=== PATIENT | female | born 1980 | race Caucasian/White ===

== ENCOUNTER 2020-06-27 14:20 | Emergency (ER) | payer OTHER ==
[~2020-06-27] VITALS: Ht 162.6 cm; Wt 81.6 kg
[~2020-06-27 14:20] MED LIST: PREN-385 PO
[2020-06-27 14:35] VITALS: BP 131/86
[2020-06-27] MEDS ORDERED: LIDOCAINE MPF 1% 10 MG/ML VIAL INJ ONE (15:00)
[2020-06-27] MEDS ORDERED: HYDROcodone/APAP 5/325 MG 1 TAB TAB PO ONE (15:00)
[2020-06-27] MEDS ORDERED: CEPH500C16 PO (15:40)
[2020-06-27] MEDS ORDERED: IBUP-2213 PO (15:40)
[2020-06-27] MEDS ORDERED: ACET-8386 PO (15:40)
[2020-06-27 16:02] VITALS: BP 131/86
== END 2020-06-27 16:04 | disposition home or self-care (01) ==
LOC: MED 14:20
DX: S61.300A Unspecified open wound of right index finger with damage to nail, initial encounter (principal); Z79.899 Other long term (current) drug therapy; Z98.890 Other specified postprocedural states; W45.8XXA Other foreign body or object entering through skin, initial encounter; Y93.89 Activity, other specified; Y92.098 Other place in other non-institutional residence as the place of occurrence of the external cause; Y99.8 Other external cause status
CPT/HCPCS: 73140; 99283; J2001

== ENCOUNTER 2021-09-29 00:14 | Emergency (ER) | payer OTHER ==
[~2021-09-29] VITALS: Ht 162.6 cm; Wt 88.9 kg
[~2021-09-29 00:14] MED LIST changes: +ACET-8386 PO; +CEPH500C16 PO; +IBUP-2213 PO
[2021-09-29 00:37] VITALS: BP 109/57
[2021-09-29] MEDS ORDERED: ONDANSETRON 4 MG/2 ML VIAL IVP ONE (01:00)
[2021-09-29] MEDS ORDERED: NACL 0.9% 1,000 ML IV ONE (01:00)
[2021-09-29] MEDS ORDERED: ACETAMINOPHEN EXTRA STRENGTH 500 MG TAB PO ONE (01:00)
[2021-09-29 01:33] LABS: BASOPHILS # (AUTO) 0.1 K/uL (0.00-0.22); BASOPHILS % (AUTO) 1.3 % (0.0-2.0); EOSINOPHILS # (AUTO) 0.1 K/uL (0-0.4); EOSINOPHILS % (AUTO) 1.4 % (0.0-4.0); HEMOGLOBIN 11.5 g/dL (12.0-16.0); LYMPHOCYTES # (AUTO) 1.4 K/uL (2.5-16.5); LYMPHOCYTES % (AUTO) 34.3 % (20.5-51.1); MEAN CORPUSCULAR HEMOGLOBIN 30 pg (27-31); MEAN CORPUSCULAR HGB CONC 34 g/dL (33-37); MEAN CORPUSCULAR VOLUME 89.6 fL (80-94); MONOCYTES # (AUTO) 0.4 K/uL (0.8-1.0); MONOCYTES % (AUTO) 10.3 % (1.7-9.3); NEUTROPHILS # (AUTO) 2.1 K/uL (1.8-7.7); NEUTROPHILS % (AUTO) 52.7 % (42.2-75.2); PLATELET COUNT (AUTO) 224 K/uL (140-450); RED BLOOD CELL COUNT(AUTO) 3.79 MIL/uL (4.20-5.40); RED CELL DISTRIBUTION WIDTH 14.7 % (11.6-13.7)
[2021-09-29 02:01] LABS: ANION GAP 12.8 (8-16); CARBON DIOXIDE 25.8 mmol/L (21-32); CREATININE 0.5 mg/dL (0.6-1.3); POTASSIUM 3.6 mmol/L (3.5-5.1); TOTAL BILIRUBIN 0.3 mg/dL (0.0-1.0)
[2021-09-29 03:22] LABS: ALBUMIN 3.6 g/dL (3.4-5.0)
[2021-09-29 03:26] LABS: APPEARANCE,URINE SL CLOUDY (CLEAR); BILIRUBIN,URINE NEGATIVE (NEGATIVE); BLOOD, URINE 3+ (NEGATIVE); COLOR,URINE DARK YELLOW (YELLOW); LEUKOCYTE ESTERASE ,URINE NEGATIVE (NEGATIVE); NITRITE, URINE NEGATIVE (NEGATIVE); UGLUCOSE NEGATIVE (NEGATIVE)
[2021-09-29 03:46] LABS: RBC,URINE >100 /HPF (0-5)
[2021-09-29 03:47] LABS: WBC,URINE 0-5 /HPF (0-5)
[2021-09-29 05:50] VITALS: BP 115/60
== END 2021-09-29 05:50 | disposition home or self-care (01) ==
LOC: MED 00:14
DX: O20.0 Threatened abortion (principal); Z3A.09 9 weeks gestation of pregnancy; Z79.2 Long term (current) use of antibiotics; Z79.1 Long term (current) use of non-steroidal anti-inflammatories (NSAID); Z79.891 Long term (current) use of opiate analgesic; Z79.899 Other long term (current) drug therapy
CPT/HCPCS: 36415; 76801; 80053; 81001; 84702; 85025; 86900; 86901; 87086; 96360; 99285; J7030; Q0092